=== PATIENT | male | born 1970 | race Caucasian/White ===

== ENCOUNTER 2024-01-21 10:27 | Inpatient (IN) | payer OTHER, SELFPAY ==
[2024-01-21] VITALS (19 sets, daily range): BP systolic 116–147; BP diastolic 72–107
--- NOTE | 2024-01-21 07:31 | ED.GENMED ---
History of Present Illness
<Henrry Dove PA-C - Last Filed: 01/21/24 12:27>
General
Chief Complaint: Breathing Problem
Source: patient
Time Seen by Provider: 01/21/24 07:11
Travel History
Have you had any contact with someone who has COVID-19?: No
Do you have any symptoms of coronavirus? Fever > 100 degrees, chills, cough, shortness of breath, sore throat, loss of taste or smell, muscle aches, or headache?: No
History of Present Illness
History of Present Illness:
53-year-old male with past medical history of hypertension and hypercholesterolemia presenting to the emergency department for evaluation of some mild shortness of breath that woke him up from sleep around 2 AM associated with some mild
lightheadedness with symptoms lasting for around an hour or so. Patient reports upon arrival to the emergency department he was asymptomatic but was concerned that he had to do work today and was concerned enough about the symptoms prompting him to
want to get checked out. Patient notes last week he was in a different emergency department in [place] where he lives partially and had an unremarkable workup. 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
apnea) next Thursday as a follow-up. Patient denies any associated chest pain, palpitations, diaphoresis, exertional dyspnea, orthopnea, lower extremity edema, cough, fevers or recent illnesses, prolonged travel. Family history was significant for
patient's twin brother having an AZ about 4 months ago. Social history was significant for occasional alcohol use.
Past History
<Henrry Dove PA-C - Last Filed: 01/21/24 12:27>
Past History
ED Past Medical History: HTN and Hypercholesterolemia
ED Past Surgical History: Appendectomy
Social History
Tobacco: Non-smoker
Alcohol: None
Drug: None
Personal:
Living: with family
Employment: Employed
Family History
Family History: Negative Early CAD or CAD
Review of Systems
<Henrry Dove PA-C - Last Filed: 01/21/24 12:27>
Review of Systems
All Other Systems: ROS reviewed and negative except as documented in HPI and ROS
Phy Exam
<Henrry Dove PA-C - Last Filed: 01/21/24 12:27>
Physical Exam
Physical Exam:
GENERAL: Alert , in no apparent distress
Head: Normocephalic/atraumatic
EYE: conjunctiva clear
NECK: Supple, no significant adenopathy.
ENT: o/p clr, mmm.
CARDIAC: Regular rate and rhythm, no murmur
LUNGS: Clear breath sounds bilaterally, no acute respiratory distress, no wheezes/rales/rhonchi
NEUROLOGICAL: Alert and oriented
SKIN: Warm and dry, skin intact.
MUSCULOSKELETAL: well perfused. No edema
PSYCH: Normal and appropriate interaction.
Scores
<Henrry Dove PA-C - Last Filed: 01/21/24 12:27>
Heart Failure Risk
Heart Failure Risk Score: Not Applicable
Heart Score for Chest Pain Patients
STEMI patient?: No
History: Slightly or Non-Suspicious
ECG: Nonspecific Repolarization
Age: >45 - <65 years
Risk Factors: 1 or 2 Risk Factors
Troponin: </= Normal Limit
Heart Score for Chest Pain Patients: 3
Heart Score Risk: 2.5% MACE over next 6 weeks
Withdrawal Assessment of Alcohol
Withdrawal Assessment Completed?: Not applicable
<Lara Kaplan MD - Last Filed: 01/21/24 08:53>
Heart Score for Chest Pain Patients
Heart Score for Chest Pain Patients: 3
Heart Score Risk: 2.5% MACE over next 6 weeks
Course
<Henrry Dove PA-C - Last Filed: 01/21/24 12:27>
Orders/Labs/Results
Orders:
Orders
01/21/24 06:13
EKG [Electrocardiogram (*1)] Urgent
Reason for Study: Shortness of Breath
01/21/24 06:14
EKG- Treatment ONCE
01/21/24 07:31
Cardiac Monitoring- Treatment ONCE
CR Chest - 2 Views Urgent
Comment:
Reason For Exam: SOB
01/21/24 07:42
Complete Blood Count/With Diff Urgent
Comprehensive Metabolic Panel Urgent
Troponin I Urgent
01/21/24 08:00
D-Dimer Urgent
PTT Urgent
Comment: Obtain baseline before beginning heparin infusion if not already collected
Prothrombin Time Urgent
01/21/24 08:33
Electrocardiogram (*1) Urgent
Reason for Study: Chest Pain
EKG- Treatment ONCE
Aspirin Chewable [Low Strength Aspirin] 324 mg PO NOW STA
01/21/24 08:34
Heparin 4,000 units IV NOW STA
Nursing to Place Non Medication Order As Directed
Physician Order: PTT 6 hours after initial start of Heparin infusion
Above order entered?: Yes
01/21/24 08:43
Heparin [id number] Units/250 ml 25,000 units in 250 ml .ROUTE .STK-MED
01/21/24 08:45
Heparin [id number] Units/250 ml 25,000 units in 250 ml IV PER PROTOCOL
Weight to be used for heparin protocol in kilograms (kg):: 111
Protocol:: Cardiac Tx/Acute Coronary
PTT Goal Range to be used:: PTT 73 to 111 seconds
Order type:: Initial
INITIAL Infusion Dose (UNITS/KG/hr) & then follow protocol:: 15 units/kg/hr
Infusion Dose in UNITS/hr & then follow protocol (UNITS/hr):: 1,500
INFUSION RATE in mL/hr & then follow protocol (mL/hr):: 15
PTT less than or equal to 64 seconds:: Increase rate by 200 units/hr (+ 2 mL/hr)
PTT 64.1 to 72.9 seconds:: Increase rate by 100 units/hr (+ 1 mL/hr)
PTT 73 to 111 seconds:: Target Range. No change in rate.
PTT 111.1 to 130.9 seconds:: Decrease rate by 100 units/hr (- 1 mL/hr)
PTT 131 to 199.9 seconds:: HOLD for 1 hr. Then decrease rate by 200 units/hr (- 2 mL/hr)
PTT greater than or equal to 200 seconds:: HOLD for 2 hrs & Notify Provider. Then decrease by 200 units/hr (-
2 mL/hr)
Lab follow-up:: Each change, PTT q6h until 2 consecutive are therapeutic. Then PTT
daily.
01/21/24 09:00
Flush (0.9% Sodium Chloride) [Flush (Nss)] See Dose Instructions IV PER PROTOCOL
01/21/24 09:05
Echo 2D MMode Color/Doppler Urgent
Reason for Study: chest pain, SOB
Cardiology Consult: Rosalind Santana
01/21/24 Lunch
Cholesterol Lowering
At Your Request: Full Participation
Cholesterol Lowering: Sodium, 2 Gram
01/21/24 10:12
Admit/Transfer Patient As Directed
Co-Sign Provider:
Level of Care: Inpatient admission
Assign to:: IVU
Physician / Group: Elvis Coombs
Diagnosis: Chest pain
Reason for Hospitalization: Chest pain, troponin elevation
Expected length of stay greater than two midnights?: Yes
ELOS- Estimated Length of Stay in days: 2
I certify the patient meets the requirements for IP care: Yes
01/21/24 10:14
Code Status As Directed
Resuscitation Status: Full Code
01/21/24 10:22
EKG- Treatment ONCE
01/21/24 10:30
Electrocardiogram (*1) Urgent
Reason for Study: Chest Pain
Other Reason for Exam: repeat test for repeat troponin
01/21/24 10:53
Troponin I Urgent
01/21/24 14:45
PTT Urgent
01/23/24 11:00
DC Protocol for Telemetry ONCE
Abnormal Lab Results
01/21/24 01/21/24
07:42 08:00
Monocytes % 10.9 H %
(1.7-9.3)
APTT 35.2 H Sec
(23.4-35.0)
BUN 22 H mg/dl
(9-20)
Glucose 119 H mg/dl
(70-99)
Troponin I 0.035 H* ng/ml
01/21/24 07:42
01/21/24 07:42
Vital Signs
Initial and Last Documented VS:
Initial Vital Signs
Temp Pulse Resp BP Pulse Ox
98.2 F 61 18 138/92 95
01/21/24 06:20 01/21/24 06:20 01/21/24 06:20 01/21/24 06:20 01/21/24 06:20
Last Documented Vital Signs
Temp Pulse Resp BP Pulse Ox
98.2 F 59 19 128/88 94
01/21/24 06:20 01/21/24 12:15 01/21/24 12:15 01/21/24 12:00 01/21/24 07:45
<Lara Kaplan MD - Last Filed: 01/21/24 08:53>
Orders/Labs/Results
Orders:
Orders
01/21/24 06:13
EKG [Electrocardiogram (*1)] Urgent
Reason for Study: Shortness of Breath
01/21/24 06:14
EKG- Treatment ONCE
01/21/24 07:31
Cardiac Monitoring- Treatment ONCE
CR Chest - 2 Views Urgent
Comment:
Reason For Exam: SOB
01/21/24 07:42
Complete Blood Count/With Diff Urgent
Comprehensive Metabolic Panel Urgent
Troponin I Urgent
01/21/24 08:00
D-Dimer Urgent
PTT Urgent
Comment: Obtain baseline before beginning heparin infusion if not already collected
Prothrombin Time Urgent
01/21/24 08:33
Electrocardiogram (*1) Urgent
Reason for Study: Chest Pain
EKG- Treatment ONCE
Aspirin Chewable [Low Strength Aspirin] 324 mg PO NOW STA
01/21/24 08:34
Heparin 4,000 units IV NOW STA
Nursing to Place Non Medication Order As Directed
Physician Order: PTT 6 hours after initial start of Heparin infusion
Above order entered?: Yes
01/21/24 08:43
Heparin [id number] Units/250 ml 25,000 units in 250 ml .ROUTE .STK-MED
01/21/24 08:45
Heparin [id number] Units/250 ml 25,000 units in 250 ml IV PER PROTOCOL
Weight to be used for heparin protocol in kilograms (kg):: 111
Protocol:: Cardiac Tx/Acute Coronary
PTT Goal Range to be used:: PTT 73 to 111 seconds
Order type:: Initial
INITIAL Infusion Dose (UNITS/KG/hr) & then follow protocol:: 15 units/kg/hr
Infusion Dose in UNITS/hr & then follow protocol (UNITS/hr):: 1,500
INFUSION RATE in mL/hr & then follow protocol (mL/hr):: 15
PTT less than or equal to 64 seconds:: Increase rate by 200 units/hr (+ 2 mL/hr)
PTT 64.1 to 72.9 seconds:: Increase rate by 100 units/hr (+ 1 mL/hr)
PTT 73 to 111 seconds:: Target Range. No change in rate.
PTT 111.1 to 130.9 seconds:: Decrease rate by 100 units/hr (- 1 mL/hr)
PTT 131 to 199.9 seconds:: HOLD for 1 hr. Then decrease rate by 200 units/hr (- 2 mL/hr)
PTT greater than or equal to 200 seconds:: HOLD for 2 hrs & Notify Provider. Then decrease by 200 units/hr (-
2 mL/hr)
Lab follow-up:: Each change, PTT q6h until 2 consecutive are therapeutic. Then PTT
daily.
01/21/24 09:00
Flush (0.9% Sodium Chloride) [Flush (Nss)] See Dose Instructions IV PER PROTOCOL
01/21/24 09:05
Echo 2D MMode Color/Doppler Urgent
Reason for Study: chest pain, SOB
Cardiology Consult: Rosalind Santana
01/21/24 Lunch
Cholesterol Lowering
At Your Request: Full Participation
Cholesterol Lowering: Sodium, 2 Gram
01/21/24 10:12
Admit/Transfer Patient As Directed
Co-Sign Provider:
Level of Care: Inpatient admission
Assign to:: IVU
Physician / Group: Elvis Coombs
Diagnosis: Chest pain
Reason for Hospitalization: Chest pain, troponin elevation
Expected length of stay greater than two midnights?: Yes
ELOS- Estimated Length of Stay in days: 2
I certify the patient meets the requirements for IP care: Yes
01/21/24 10:14
Code Status As Directed
Resuscitation Status: Full Code
01/21/24 10:22
EKG- Treatment ONCE
01/21/24 10:30
Electrocardiogram (*1) Urgent
Reason for Study: Chest Pain
Other Reason for Exam: repeat test for repeat troponin
01/21/24 10:53
Troponin I Urgent
01/21/24 14:45
PTT Urgent
01/23/24 11:00
DC Protocol for Telemetry ONCE
Abnormal Lab Results
01/21/24 01/21/24
07:42 08:00
Monocytes % 10.9 H %
(1.7-9.3)
APTT 35.2 H Sec
(23.4-35.0)
BUN 22 H mg/dl
(9-20)
Glucose 119 H mg/dl
(70-99)
Troponin I 0.035 H* ng/ml
01/21/24 07:42
01/21/24 07:42
Vital Signs
Initial and Last Documented VS:
Initial Vital Signs
Temp Pulse Resp BP Pulse Ox
98.2 F 61 18 138/92 95
01/21/24 06:20 01/21/24 06:20 01/21/24 06:20 01/21/24 06:20 01/21/24 06:20
Last Documented Vital Signs
Temp Pulse Resp BP Pulse Ox
98.2 F 59 19 128/88 94
01/21/24 06:20 01/21/24 12:15 01/21/24 12:15 01/21/24 12:00 01/21/24 07:45
<Henrry Dove PA-C - Last Filed: 01/21/24 12:27>
MDM/Problems Addressed
Differential Diagnosis Includes:
Atypical ACS presentation, sleep apnea, I do not have concern for pulmonary embolism, no concern for infectious etiology such as pneumonia
MDM/Problems Addressed:
53-year-old male presenting emergency department for evaluation after being woken around 2 AM sensation of shortness of breath and as if he could not take a deep breath in to get enough oxygen patient reports his symptoms are fully resolved at this
time. He did not have any chest pain with this episode however notes that he was in a different emergency department in March last week for chest pain. Patient reports his symptoms this morning were different than the symptoms that brought him
to the ER last week. Patient does have risk factors including hypertension and high cholesterol as well as a twin brother having an AZ 4 months ago. Will check labs, EKG and chest x-ray. Will repeat a troponin. Will help with expedited
outpatient follow-up as long as remaining workup is unremarkable.
<Henrry Dove PA-C - Last Filed: 01/21/24 12:27>
*Pulse Oximetry
Patient hypoxic: no
*EKG
Interpreted by ED Provider?: Yes
Comparison EKG: changes noted
Heart Rate: 65
Rate: normal
Rhythm: sinus
Ischemia: T-wave inversion (V through through V5)
*Critical Care Note
Total Time (30-74mins, 75-104mins- exclusive of procedures): 30
comment:
Critical care statement: A total of 30 minutes of critical care time was provided for this patient. This includes management of unstable vital signs, evaluation of the patient at bedside, reviewing the patient's pertinent medical records, discussion
with consultants, review of old EKGs and review of pertinent medical records. This time with separate from time utilized to perform the aforementioned documented procedures
<Henrry Dove PA-C - Last Filed: 01/21/24 12:27>
Patient Management
Discussion with other providers: Food Services Coordinator
Escalation/DeEscalation of care consider admission/obs:
8:35 AM: Patient's first troponin came back mildly elevated at 0.035. Given his T wave inversions on EKG, risk factors including family history, hypertension, hyperlipidemia and presenting symptoms today concern for a possible NSTEMI versus non-AZ
elevated troponin. I contacted cardiology to help with disposition planning as well as further treatment. They are requesting that we repeat an EKG now. Patient took to 81 mg aspirin at home earlier today so an additional 281 mg aspirin given
here. Heparin ordered at cardiology's for and we added a D-dimer on as well.
ED Attending Note
<Henrry Dove PA-C - Last Filed: 01/21/24 12:27>
-
Portions of this chart may have been created with voice recognition software.� Occasional wrong word or��sound alike� substitutions may have occurred due to the inherent limitations of voice recognition software.
<Lara Kaplan MD - Last Filed: 01/21/24 08:53>
ED Attending Note
Patient seen and examined by attending physician: Yes
I performed the substantive portion of visit, reviewed & personally made and approve the management plan that is documented in note by myself or NORBERTO.: Yes
ED Attending Note:
Patient appears well and comfortable. Denies active chest pain at this time. Patient breathing comfortably. Nonfocal neurological exam
Discharge Plan
Departure
Patient Disposition: Admit
Date of Disposition: 01/21/24
Time of Disposition: 08:58
Presentation/result/management discussed w/ accepting MD/DO: Hospitalist
Discharge Problem:
Chest pain
Interventions
Interventions:
*Risk Screen - Suicide Last Done: 01/21/24 07:30
*General Assessment Last Done: 01/21/24 07:30
*Neglect/Abuse Screening Last Done: 01/21/24 07:30
ED- Fall Risk Assessment Last Done: 01/21/24 07:54
*ED COVID-19 Vaccine History Last Done: 01/21/24 07:30
ED- Cardiac Assessment Last Done: 01/21/24 07:30
ED- Pulmonary Assessment Last Done: 01/21/24 07:32
[2024-01-21 07:56] LABS: % Basophils 0.7 % (0-2); % Eosinophils 4.4 % (0-6); % Immature Granulocytes 0.2 % (0-0.5); % Monocytes 10.9 % (1.7-9.3); % Neutrophils 46.8 % (42.2-75.2); Absolute Eosinophils 0.2 10^3/uL (0-0.7); Absolute Monocytes 0.6 10^3/uL (0.1-0.6); Absolute Neutrophils 2.6 10^3/uL (1.4-6.5); Hematocrit 40.3 % (39.0-52.0); Hemoglobin 14.4 g/dL (13.0-18.0); Mean Corp Hgb Conc. 35.7 g/dL (33.0-37.0); Mean Corpuscular Hgb 29.3 pg (27.0-31.0); Mean Corpuscular Volume 81.9 fL (80.0-94.0); Mean Platelet Volume 9.6 fL (7.4-10.4); Nucleated Red Blood Cells % 0 % (-); Platelet Count 234 10^3/uL (130-400); Red Blood Cell Count 4.92 10^6/uL (4.70-6.10); Red Cell Dist. Width 12.5 % (11.5-14.5); White Blood Cell Count 5.5 10^3/uL (4.8-10.8)
[2024-01-21 08:09] LABS: ALT (SGPT) 47 U/L (0-50); AST (SGOT) 37 U/L (17-59); Alkaline Phosphatase 86 U/L (38-126); Blood Urea Nitrogen 22 mg/dl (9-20); Calcium 10.1 mg/dl (8.4-10.2); Carbon Dioxide 28 mmol/L (22-30); Chloride 103 mmol/L (98-107); Glucose 119 mg/dl (70-99); Potassium 3.5 mmol/L (3.5-5.1); Sodium 139 mmol/L (135-145); Total Bilirubin 0.6 mg/dl (0.2-1.3); Total Protein 6.7 g/dl (6.3-8.2); eGFR > 60.00
[2024-01-21 08:23] LABS: Troponin I 0.035 ng/ml
[2024-01-21] MEDS: LOW STRENGTH ASPIRIN 162 MG PO (08:40)
[2024-01-21] MEDS: HEPARIN 4000 UNITS IV (08:44)
[2024-01-21] MEDS: HEPARIN 25000 UNITS/250 ML IV (08:52)
[2024-01-21 09:05] LABS: INR 1.04; PT 13.6 Sec (11.4-14.6)
[2024-01-21 09:06] LABS: APTT 35.2 Sec (23.4-35.0)
[2024-01-21 09:13] LABS: D-Dimer < 0.27 ug/mlFEU (0.00-0.50)
--- NOTE | 2024-01-21 09:52 | CON.CAR ---
Addendum entered and electronically signed by Rosalind Santana DO 01/21/24 17:45:
I saw and examined the patient.
The Senior Industrial Engineer's note was reviewed and I agree with the note.
Comment: Patient seen and examined in ED 29 along with cardiac nurse practitioner. Patient came to [facility] today with chest pain and SOB. Patient was seen in [facility] last Thursday for an episode of chest pain. Patient says that at
that time he was driving from his home locally down to visit his family in [place] when he had 4 episodes of sharp chest pain that would come and go. Pain was more to the left and no radiation or SOB. He was told that he had unremarkable Troponin
levels and he was discharged form the ER. He was overall stable until he awoke at 0200 this morning gasping for breath and had more chest pain. He tried to catch his breath, but could never fall back to sleep so he finally came to [facility]. Patient had
chest pain back in 2015 and he completed stress echo at that time that showed normal EF at 7 min of Kemar protocol and the focus of treatment then was HTN management. Patient takes amlodipine 5 mg BID, losartan 100 mg daily and Lopressor 25 mg BID
for BP control. Patient is also concerned because his fraternal twin brother just had TX and PCI 4 months ago. He is currently chest pain-free
General: No acute distress, AAOX3
Neck: Negative JVD
Heart: Regular, Negative S3 positive S1/S2, Negative S4, No murmur
Lungs: CTA b/l, negative wheezes/rales/rhonchi
Abd: Positive BS, NT/ND, neg rebound/rigidity/guarding
Ext: Negative cyanosis/clubbing/edema
Neuro: nonfocal
Plan:
-Recurrent chest pain with initial Troponin 0.035 with cardiac risk factors and abnormal EKG with anterolateral T wave changes.
-He is pain free currently on a heparin drip
-Trend cardiac troponin and recheck EKG
-Check lipid profile
-Bedside echocardiogram with normal biventricular size and systolic function with mild LVH. No significant valve pathology. No pericardial effusion.
-Discussed further ischemic evaluation and he is agreeable to left heart catheterization
-Hypertension
-Goal normotension
Obstructive sleep apnea on CPAP
-He is scheduled to see Dr. Navarro for ongoign CPAP management of his FREDY. He reports resting the mask on his face and does not strap the mask when wearing it.
Original Note:
Consultation
Consultation Request
Date/Time Consultation Requested: 01/21/24
Date/Time Consultation Performed: 01/21/24
Requesting Provider: Petty MAURICE in ER
Performing Provider: Dr. Rosalind Santana
Reason for Consultation: Chest pain, SOB
Medical History
-
History of Present Illness:
Patient came to [facility] today with chest pain and SOB. Patient was seen in [facility] last Thursday for an episode of chest pain. Patient says that at that time he was driving from his home locally down to visit his family in [place]
when he had 4 episodes of sharp chest pain that would come and go. Pain was more to the left and no radiation or SOB. He was told that he had unremarkable Troponin levels and he was discharged form the ER. He was overall stable until he awoke at
0200 this morning gasping for breath and had more chest pain. He tried to catch his breath, but could never fall back to sleep so he finally came to [facility]. Patient had chest pain back in 2015 and he completed stress echo at that time that showed
normal EF at 7 min of Kemar protocol and the focus of treatment then was HTN management. Patient takes amlodipine 5 mg BID, losartan 100 mg daily and Lopressor 25 mg BID for BP control. Patient is also concerned because his fraternal twin brother
just had TX and PCI 4 months ago.
PMH:
HTN
Hyperlipidemia
FREDY on CPAP
Past Medical History
Past Medical History: Other (in HPI)
Past Surgical History: Appendectomy
Social History
Tobacco: Non-Smoker
Alcohol: Occasional
Drug: None
Personal: (in process of divorce)
Family History
Family History: CAD (fraternal twin brother had an TX and PCI 4 months ago)
Allergies / Home Medications
Allergy/AdvReac Type Severity Reaction Status Date / Time
hydrocodone bitartrate Allergy HEADACHE Verified 01/21/24 06:20
[From Vicodin]
Medication Instructions Recorded Confirmed Type
acetaminophen 325 mg tablet 650 mg PO DAILYPRN PRN mild pain 01/21/24 01/21/24 History
(Tylenol)
amlodipine 5 mg tablet 5 mg PO BID Blood Pressure 01/21/24 01/21/24 History
ascorbic acid (vitamin C) 500 mg 500 mg PO DAILY Supplement 01/21/24 01/21/24 History
tablet (Vitamin C)
aspirin 81 mg tablet,delayed 81 mg PO ONCE PRN freaking out 01/21/24 01/21/24 History
release
coenzyme Q10 100 mg capsule 100 mg PO DAILY PRN supplement 01/21/24 01/21/24 History
(CoQ-10)
losartan 100 mg tablet 100 mg PO DAILY Blood Pressure 01/21/24 01/21/24 History
metoprolol tartrate 25 mg tablet 25 mg PO BID Blood Pressure 01/21/24 01/21/24 History
rosuvastatin 5 mg tablet 5 mg PO DAILY High Cholesterol 01/21/24 01/21/24 History
Review of Systems
-
History Source: Patient
All other systems: Negative unless noted
Physical Exam
Vital Signs
Temp Pulse Resp BP Pulse Ox
98.2 F 62 20 135/94 94
01/21/24 06:20 01/21/24 09:30 01/21/24 09:30 01/21/24 09:00 01/21/24 07:45
GEN: NAD. AAOx3
HEENT: EOMI, MMM
LUNGS: CTA B/L, no wheezes or rales
CV: Reg, S1/S2, no murmur
ABD: soft, BS+, NT, ND
EXT: No clubbing, cyanosis, lesions or edema B/L
NEURO: Gross non-focal
SKIN: Warm, dry and pink. No rash
Lab Results
01/21/24 07:42
01/21/24 07:42
Troponin I 0.035 ng/ml H* 01/21/24 07:42
Impression / Plan
-
PCP: Dr. Rubia Jessica
Cardiology: Dr. ROSLYN Guzman, last seen in 2015
Pulm: Dr. Navarro
Impression:
Chest pain
SOB
HTN
Hyperlipidemia
FREDY on CPAP
Echo 01/21/24: preliminary report, preserved EF, no WMA, LV wall thickness 1.2, no MAIKEL
Plan:
-Patient came to [facility] today with chest pain and SOB. Patient was seen in [facility] last Thursday for an episode of chest pain. Patient says that at that time he was driving from his home locally down to visit his family in [place]
when he had 4 episodes of sharp chest pain that would come and go. Pain was more to the left and no radiation or SOB. He was told that he had unremarkable Troponin levels and he was discharged form the ER. He was overall stable until he awoke at
0200 this morning gasping for breath and had more chest pain. He tried to catch his breath, but could never fall back to sleep so he finally came to [facility]. Patient had chest pain back in 2015 and he completed stress echo at that time that showed
normal EF at 7 min of Kemar protocol and the focus of treatment then was HTN management. Patient takes amlodipine 5 mg BID, losartan 100 mg daily and Lopressor 25 mg BID for BP control. Patient is also concerned because his fraternal twin brother
just had TX and PCI 4 months ago.
-Recurrent chest pain with initial Troponin 0.035. His twin brother just had TX and PCI 4 months ago. ECG reviewed by me with abnormal with anterolateral T wave changes. He is pain free
-Start Heparin gtt
-He took 2 aspirin at home this morning and was given 2 more in the ER this morning
-Check CVE
-Awaiting 2nd Troponin
-Urgent bedside echo in ER preliminarily looks stable
-He is scheduled to see Dr. Navarro for ongoign CPAP management of his FREDY. He reports resting the mask on his face and does not strap the mask when wearing it.
--- NOTE | 2024-01-21 10:17 | HPS.HSE ---
Family Physician
-
Family Physician: Rubia Jessica MD
Chief Complaint
-
Chest pain/shortness of breath
History of Present Illness
Patient is a 53-year-old male with past medical history essential hypertension, hyperlipidemia, obesity came to ER with having new onset of chest discomfort with some shortness of breath. Initial symptom was few days back on Thursday night when he is
resolved by itself. 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 Patient denied having any associated diaphoresis nausea palpitation. No previous cardiac history. Denies any
abdominal or history.
Patient family member/twin brother has been diagnosed with coronary disease/ME just few months back and patient was concerned about cardiac health, came to ER for further evaluation.
Medical History
Past Medical History
Past Medical History: Reports Other
Additional Past Medical History:
Essential HTN, HLD, obesity
Past Surgical History: Reports None
Social History
Tobacco: Non-smoker
Alcohol: Occasional
Drug: None
Living: With Family
Family History
Family History: Not pertinent
Allergies / Home Medications
Allergies reflects when Allergies were last updated in [facility].
Home Medications with original date entered in [facility]
Allergy/Medication List:
Allergies
Allergy/AdvReac Type Severity Reaction Status Date / Time
hydrocodone bitartrate Allergy HEADACHE Verified 01/21/24 06:20
[From Vicodin]
Home Medications
acetaminophen 325 mg tablet (Tylenol) 650 mg PO DAILYPRN PRN mild pain 01/21/24
amlodipine 5 mg tablet 5 mg PO BID Blood Pressure 01/21/24
ascorbic acid (vitamin C) 500 mg tablet (Vitamin C) 500 mg PO DAILY Supplement 01/21/24
aspirin 81 mg tablet,delayed release 81 mg PO ONCE PRN freaking out 01/21/24
coenzyme Q10 100 mg capsule (CoQ-10) 100 mg PO DAILY PRN supplement 01/21/24
losartan 100 mg tablet 100 mg PO DAILY Blood Pressure 01/21/24
metoprolol tartrate 25 mg tablet 25 mg PO BID Blood Pressure 01/21/24
rosuvastatin 5 mg tablet 5 mg PO DAILY High Cholesterol 01/21/24
Review of Systems
-
A 12 point ROS was completed and negative except as noted: Yes
Physical Exam
Vital Signs
Vital Signs
Temp Pulse Resp BP Pulse Ox
98.2 F 63 13 132/94 94
01/21/24 06:20 01/21/24 10:00 01/21/24 10:00 01/21/24 10:00 01/21/24 07:45
Physical Exam
General: No Apparent Distress
HEENT: Atraumatic; No Oxygen
Respiratory: Clear
Cardiac: S1/S2 and Regular Rhythm; No Murmur or Rub
GI: Soft, Non Tender, Non Distended and Normal Bowel Sounds; No Organomegaly
Rectal: Deferred by Provider
Musculoskeletal: No Clubbing, No Cyanosis and No Edema
Skin: No Rash
Neuro: Nonfocal/grossly intact
Laboratory Results
-
01/21/24 07:42
01/21/24 07:42
Laboratory Results
PT 13.6 Sec (11.4-14.6) 01/21/24 08:00
INR 1.04 01/21/24 08:00
APTT 35.2 Sec (23.4-35.0) H 01/21/24 08:00
Total Bilirubin 0.6 mg/dl (0.2-1.3) 01/21/24 07:42
AST 37 U/L (17-59) 01/21/24 07:42
ALT 47 U/L (0-50) 01/21/24 07:42
Alkaline Phosphatase 86 U/L (38-126) 01/21/24 07:42
Troponin I 0.035 ng/ml H* 01/21/24 07:42
Data Reviewed
-
Lab Data: Labs Reviewed by me, Discussed with Patient and Discussed with Family
Impression/Plan
-
1. Chest pain
Presumed NSTEMI
-have chest pain/sob, no previous cardiac h/o
-EKG showing T wave depression/inversion in V4 V5 V6
-Troponin 0.035, repeat was 0.034
-Cardiology evaluated and patient started on heparin drip
-aspirin 325 mg and continue 81mg
-check a1c and lipid profile
-Admit to IVU
2. Essential HTN
-Maintain on Norvasc/metoprolol with holding parameter
-hold losartan for possible need of LHC/contrast exposure
3. HLD
-maintain on crestor
DVT PPX - heparin
full code
Total time spent : 78 mins
I personally saw and examined the patient.
I have reviewed all diagnostic interpretations and treatment plans as written.
Time includes patient management by me, time spent at the patients bedside, time to review lab and imaging results, discussing patient care, documentation in the medical record, and time spent with the family or caregiver and discussing care plan
with RN/Consultants.
[2024-01-21 11:25] LABS: Troponin I 0.034 ng/ml
--- NOTE | 2024-01-21 13:12 | W.PN.UPDATE ---
Update Note
Progress Note Update
Updated Troponin and ECG reviewed. Troponin trending down. ECG stable. Called and talked with patient. He is pain free.f Cont Heparin gtt. Explained to patient that IAT and STEMI are in lab now and that once lab is free he will go.
[2024-01-21 15:32] LABS: ACT-LR - POC 289 Seconds (116-155)
[2024-01-21 16:05] LABS: ACT-LR - POC 294 Seconds (116-155)
[2024-01-21 16:52] LABS: ACT-LR - POC 343 Seconds (116-155)
[2024-01-21 18:01] LABS: Troponin I 0.037 ng/ml
[2024-01-21] MEDS: CRESTOR 20 MG PO (18:08)
--- NOTE | 2024-01-21 18:29 | PTCARENOTE ---
Received pt s/p LHC. R TR band in place, no bleeding noted, see post cath documentation. Pt AOx3, denies pain, NSR w/ 1degree AVB and PACs on monitor HR 70. 98% on RA. Full assessment as documented.
[2024-01-21] MEDS: NORVASC 5 MG PO (20:02)
[2024-01-21] MEDS: BRILINTA 90 MG PO (20:02)
[2024-01-21] MEDS: LOPRESSOR 25 MG PO (20:03)
--- NOTE | 2024-01-21 22:00 | PTCARENOTE ---
Pt asked for O2 to sleep. States he has sleep apnea but doesn't use his cpap. States he was feeling a little short of breath. Placed on O2 2l nC.
--- NOTE | 2024-01-21 22:17 | ITS.CL.CATH ---
Machined Parts Quality Inspector - Catheterization
Cardiac Catheterization
Procedure Report:
LEFT HEART CATH AND CORONARY INTERVENTION
Date of Procedure: January 21, 2024
Referring: Dr. Rosalind Santana
PROCEDURES:
1. Left heart catheterization with coronary and single-plane left ventriculography
2. 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 The mid circumflex was stented with a 4.5 x 12 mm [place] stent that was postdilated with a 4.5 mm noncompliant balloon
3. Stenting of anomalous circumflex/OM branch with a 2.25 x 22 mm Víctor stent that was implanted at nominal pressures and postdilated with a 2.25 mm noncompliant balloon
INDICATION: This is a 53-year-old gentleman with a past medical history notable for hypertension and hyperlipidemia who presented to [facility] with atypical but worsening chest discomfort and troponin measuring at the upper limits of
normal. His symptoms have been worsening and he is now referred for coronary angiography.
ACCESS: Right radial artery, 6 Afghan sheath
HEMODYNAMICS (mmHg):
AO (s/d, m) : 125/79
LV (s/d) : 125/14
LVEDP : 29
CORONARY FINDINGS
Dominance: Right
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 The left main only supplies the LAD
LEFT ANTERIOR DESCENDING: The LAD arises normally from the left main and has a 30% proximal stenosis and diffuse nonobstructive luminal irregularities throughout the mid LAD. The apical LAD has a focal 80% stenosis as the artery is wrapping around
the apex.
CIRCUMFLEX: The circumflex has an anomalous origin from the right coronary cusp best cannulated using a multipurpose (MP 1) catheter. The circumflex is a large-caliber vessel nondominant vessel with an 85% stenosis in its midportion. The
circumflex bifurcates to to moderate caliber daughter branches. The more proximal daughter branch has a 50% stenosis at its origin and long 60% mid stenosis. The second daughter branch has tandem proximal 60% stenoses and long 90% stenosis in its
midportion after which the vessel bifurcates into 2 smaller daughter branches
RIGHT CORONARY: The right coronary artery is a dominant vessel with tandem proximal 50% stenosis and 60% stenosis in its midportion. The PDA has a 70% proximal stenosis and is a medium to large caliber vessel
VENTRICULOGRAPHY: Left ventriculography was performed in an [place] projection. The digital single-plane left ventricular ejection fraction is visually estimated at 50% with anterolateral and diaphragmatic inferior hypokinesis noted. The anomalous
circumflex was noted to fill from the right coronary cusp
ANGIOPLASTY PROCEDURE DETAIL: Upon review of the diagnostic catheterization films the decision was made to proceed with percutaneous intervention of the circumflex and obtuse marginal branch with a high-grade mid stenosis. It was felt that this
vascular distribution fit best with the anterolateral wall motion abnormality noted on ventriculography. Intravenous heparin was administered and the ACT was monitored during the procedure. The patient received aspirin and a 180 mg loading dose of
ticagrelor. The origin of the anomalous circumflex was cannulated with a 6 Afghan MP 1 catheter and a BMW guidewire across the high-grade mid circumflex stenosis but could not be advanced to the OM 2 secondary to wire bypass from the mid circumflex
stenosis. The decision was made to stent the mid circumflex with a 4.5 x 12 mm [place] stent that was implanted at nominal pressures then postdilated with a 4.5 mm noncompliant balloon. The BMW guidewire was then easily directed into the second
obtuse marginal branch and across the high-grade stenosis in the midportion of the vessel. Predilation was performed using a 2 mm Emerge balloon and required high pressures to achieve balloon expansion. Attempts to cross the lesion with a 2.25 x
22 mm Víctor stent were unsuccessful due to residual stenosis and OM 2. A GuideLiner was then advanced to the mid circumflex and the [place] stent was easily delivered to the midportion of OM 2 where it was implanted at nominal pressures and postdilated
with a 2.25 mm noncompliant balloon with a nice angiographic result
RADIATION SUMMARY: Fluoro Time (min): 21.5, Dose (mGy): 1561, DAP (Gy.cm2) : 113
CONCLUSIONS
1. 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
2. Residual coronary disease in the proximal to mid RCA and proximal PDA as well as OM1.
3. Low normal LVEF with regional anterolateral wall motion abnormality and focal diaphragmatic inferior hypokinesis
RECOMMENDATIONS
1. May consider staged assessment of the RCA and/or OM1 for hemodynamic significance and possible PCI. Apical LAD stenosis should be managed medically.
2. High intensity statin therapy
3. Uninterrupted dual antiplatelet therapy for 12 months
Copy to: Dr. Rosalind Santana
[2024-01-22] VITALS: BP 103/63
[2024-01-22 02:00] VITALS: BP 106/67
[2024-01-22 04:45] VITALS: BP 123/88
[2024-01-22 05:11] LABS: Hematocrit 42.6 % (39.0-52.0); Hemoglobin 15.3 g/dL (13.0-18.0); Mean Corp Hgb Conc. 35.9 g/dL (33.0-37.0); Mean Corpuscular Hgb 30.1 pg (27.0-31.0); Mean Corpuscular Volume 83.7 fL (80.0-94.0); Mean Platelet Volume 9.9 fL (7.4-10.4); Platelet Count 229 10^3/uL (130-400); Red Blood Cell Count 5.09 10^6/uL (4.70-6.10); Red Cell Dist. Width 12.5 % (11.5-14.5); White Blood Cell Count 6.6 10^3/uL (4.8-10.8)
[2024-01-22 05:36] LABS: Blood Urea Nitrogen 19 mg/dl (9-20); Calcium 9.7 mg/dl (8.4-10.2); Carbon Dioxide 28 mmol/L (22-30); Chloride 106 mmol/L (98-107); Estimated Creatinine Clearance 116 ml/min; Glucose 98 mg/dl (70-99); HDL Cholesterol 35 mg/dl; LDL Cholesterol, Calculated 101 mg/dl; Potassium 3.6 mmol/L (3.5-5.1); Sodium 140 mmol/L (135-145); Total Cholesterol 180 mg/dl (50-199); Triglyceride 221 mg/dl (10-149); Very Low Density Lipoprotein 44 mg/dl (0-30); eGFR > 60.00
[2024-01-22 05:39] LABS: Troponin I 0.407 ng/ml
[2024-01-22 07:46] VITALS: BP 127/91
[2024-01-22 08:45] LABS: Glycohemoglobin (HgbA1c) 5.5 % (4.0-5.6)
[2024-01-22] MEDS: COZAAR 100 MG PO (08:56)
[2024-01-22] MEDS: BRILINTA 90 MG PO (08:56)
[2024-01-22] MEDS: ASPIR LOW (ENTERIC COATED) 81 MG PO (08:56)
[2024-01-22] MEDS: NORVASC 5 MG PO (08:57)
[2024-01-22] MEDS: LOPRESSOR 25 MG PO (08:57)
--- NOTE | 2024-01-22 09:25 | CM ---
Addendum entered by Jenn Thomas 01/22/24 11:54:
Telephone call to [facility] to check if Brilinta 90 mg po bid is in stock. [facility] states they have it in stock.
Original Note:
Reviewed chart. Met with Mr. Conteh to review discharge plans. He states prior to admission he resides alone in an apartment. He states he has eighteen steps to get to the apartment. He states prior to admission he was independent with ambulation
and adls. He states he has a CPAP Machine at home and no other DME. He states he has a prescription plan and uses [facility]. Telephone call to [facility] benefit,([phone]) to check on coverage for Brilinta 90 mg po bid. His
first co-pay would be $293.48. He has a $500.00 a month deductible. after he mets his deductible his co-pay would be $145.08. He can use the $5.00 coupon so he first script would be $93.08 and then it would be $5.00 a month. Placed the $5.00 coupon
in his red discharge folder. Reviewed co-pays with him. He was agreeable. Medical work-up in progress. The discharge plan is to return miguel when medically stable.
--- NOTE | 2024-01-22 10:56 | W.PN.HOSP.TC ---
Today's Communication/Plan
-
d/c planning post cardio eval
Assessment / Plan
Assessment / Plan
[facility]
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
2.� Residual coronary disease in the proximal to mid RCA and proximal PDA as well as OM1.
3.� Low normal LVEF with regional anterolateral wall motion abnormality and focal diaphragmatic inferior hypokinesis

1. Chest pain
� � Presumed NSTEMI
-have chest pain/sob, no previous cardiac h/o
-EKG showing T wave depression/inversion in V4 V5 V6
-Borderline trop elevation.
-aspirin 325 mg and continue 81mg
-A1c 5.5 TC 180 LDL 101 HDL 35
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
-Cardio recommended dual anti plt and donell intensity statin therapy moving forward
2. Essential HTN
-Maintain on Norvasc/metoprolol with holding parameter
-hold losartan for possible need of LHC/contrast exposure
3. HLD
-maintain on crestor
4. Dyspnea
-CAD stented as on [facility] report above
-D-dimer neg. cxr clean.
DVT PPX - heparin
full code
Anticipated Discharge: Today
Subjective/Interval History
-
Date of Service: January 22, 2024
resting comfortably in bed
some dyspnea, not hypoxic
no other reported problems
Objective Data
-
Labs:
Laboratory Results
01/22/24
05:01
WBC 6.6
Hgb 15.3
Hct 42.6
Plt Count 229
Sodium 140
Potassium 3.6
Chloride 106
Carbon Dioxide 28
BUN 19
Creatinine 0.9
Glucose 98
Calcium 9.7
Vital Signs:
Vital Signs
Temp Pulse Resp BP Pulse Ox
97.2 F 65 18 127/91 99
01/22/24 07:45 01/22/24 08:56 01/22/24 07:45 01/22/24 08:56 01/22/24 10:12
I&O
01/21/24 01/22/24 01/23/24
06:59 06:59 06:59
Output Total 650 / 650 400 / 400
Balance -650 / -650 -400 / -400
Review of Systems
-
Respiratory: Reports Trouble Breathing
Cardiac: Reports No Symptoms
Abdomen/GI: Reports No Symptoms
Physical Exam
-
General: Comfortable
HEENT: Negative Oxygen
Respiratory: Clear to Auscultation
Cardiac: Regular Rhythm and S1/S2; Negative Murmur
Neuro: Awake, Alert and Oriented
Psych: Calm
[2024-01-22 11:54] VITALS: O2SAT 97; O2SAT 99
[2024-01-22 13:03] LABS: ACT-LR - POC > 397 Seconds (116-155)
--- NOTE | 2024-01-22 13:28 | W.PN.CARDCBS ---
Addendum entered and electronically signed by Junior Cox MD 01/22/24 15:29:
I saw and examined the patient.
The PILLOWCASE CLEANER or PA's note was reviewed and I agree with the note.
Comment: General: Well developed, well nourished in NAD.
Neck: Supple, no JVD, HJR, carotids +2 B/L, no bruits bilaterally.
Heart: Non displaced PMI, RRR, no murmurs, No S3, S4, no rubs.
Lungs: Clear to auscultation bilaterally, no wheeze, rhonchi, rubs bilaterally,
normal expiratory phase.
Extremities: No clubbing, cyanosis or edema bilaterally.
Neuro: Grossly nonfocal, awake, alert and oriented x3.
He put oxygen on but has not had any hypoxemia. He ambulated throughout the hallways without oxygen desaturation. No chest pain. Discharge to home. Consider stress testing versus staged intervention of residual disease
Original Note:
Today's Communication / Plan
-
s/p PCI of circumflex and OM2.
Continue DAPT
Continue Lopressor, amlodipine, and losartan
Follow up arranged
OK for discharge
Impression / Plan
-
PCP: Dr. Rubia Jessica
Cardiology: Dr. ROSLYN Guzman, last seen in 2015
Pulm: Dr. Navarro
Impression:
Chest pain
SOB
NSTEMI
CAD
s/p PCI of mid circumflex w/ 4.5 x 12 mm Víctor stent 01/21/2024
s/p PCI of OM 2 w/ 2.25 x 22 mm [place] stent 01/21/2024
residual disease of RCA, PDA, and OM1 as noted below
HTN
Hyperlipidemia
FREDY on CPAP
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 LAD: 30% proximal stenosis and diffuse luminal irregularities throughout the mid LAD. Apical LAD has a focal 80% stenosis as
the artery is wrapping around the apex. LCx: 85% stenosis in midportion bifurcates to moderate caliber daughter branches. The more proximal daughter branch has a 50% stenosis at its origin and a long 60% mid stenosis. Second-order branch has
tandem proximal 60% stenoses and a long 90% stenoses in its midportion after which the vessel bifurcates into 2 smaller daughter branches. RCA: Dominant vessel with tandem proximal 50% stenosis and 60% stenosis in its midportion. PDA has a 70%
proximal stenosis.
Echo 01/21/2024: EF 55 to 60%, no RWMA, mild TR, dilated aortic root with sinus of Valsalva measuring 4.0 cm, ascending aorta measures 3.7 cm
Plan:
-Presented with chest pain. initial troponin 0.035 and trended up to 0.407. Underwent LHC which revealed MV CAD as outlined above and patient had stenting of the mid circumflex and OM2.
-Continue DAPT with aspirin and Brilinta
-LDL 101 this AM. Continue Crestor 20mg daily.
-BP stable. Continue amlodipine, losartan, and Lopressor.
-Echo 01/20 with preserved EF as noted above.
-Some dyspnea reported this AM, however no desaturations were noted on ambulatory pulse ox.
-Stable for discharge to home.
-Cardiac rehab saw and arranged for 03/01/2024.
-Follow up arranged w/ cardiology.
HPI: Patient came to [facility] today with chest pain and SOB. Patient was seen in [facility] last Thursday for an episode of chest pain. Patient says that at that time he was driving from his home locally down to visit his family in [facility]
March when he had 4 episodes of sharp chest pain that would come and go. Pain was more to the left and no radiation or SOB. He was told that he had unremarkable Troponin levels and he was discharged form the ER. He was overall stable until he awoke at
0200 this morning gasping for breath and had more chest pain. He tried to catch his breath, but could never fall back to sleep so he finally came to [facility]. Patient had chest pain back in 2015 and he completed stress echo at that time that showed
normal EF at 7 min of Kemar protocol and the focus of treatment then was HTN management. Patient takes amlodipine 5 mg BID, losartan 100 mg daily and Lopressor 25 mg BID for BP control. Patient is also concerned because his fraternal twin brother
just had PR and PCI 4 months ago.
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
Subjective
Date of Service: January 22, 2024
Objective
Labs:
01/22/24 05:01
01/22/24 05:01
Labs
Hgb 15.3 g/dL (13.0-18.0) 01/22/24 05:01
Hct 42.6 % (39.0-52.0) 01/22/24 05:01
Plt Count 229 10^3/uL (130-400) 01/22/24 05:01
PT 13.6 Sec (11.4-14.6) 01/21/24 08:00
INR 1.04 01/21/24 08:00
APTT Cancelled 01/21/24 14:45
Sodium 140 mmol/L (135-145) 01/22/24 05:01
Potassium 3.6 mmol/L (3.5-5.1) 01/22/24 05:01
BUN 19 mg/dl (9-20) 01/22/24 05:01
Creatinine 0.9 mg/dL (0.7-1.3) 01/22/24 05:01
Glucose 98 mg/dl (70-99) 01/22/24 05:01
Troponins
01/21/24 01/21/24 01/21/24
07:42 10:53 15:00
Troponin I 0.035 H* 0.034 Cancelled
01/21/24 01/22/24
17:27 05:01
Troponin I 0.037 H* 0.407 H*
Vital Signs and I&O:
Vital Signs
Temp Pulse Resp BP Pulse Ox
98.2 F 64 16 127/91 98
01/22/24 11:46 01/22/24 11:46 01/22/24 11:46 01/22/24 08:56 01/22/24 11:46
Vital Signs
Temp Pulse Resp BP Pulse Ox
98.2 F 64 16 127/91 98
01/22/24 11:46 01/22/24 11:46 01/22/24 11:46 01/22/24 08:56 01/22/24 11:46
Intake & Output
01/20/24 01/21/24 01/22/24 01/23/24
06:59 06:59 06:59 06:59
Output Total 650 / 650 400 / 400
Balance -650 / -650 -400 / -400
--- NOTE | 2024-01-22 14:37 | PTCARENOTE ---
VSS. NSR on monitor. No complaints. Discharge instructions given.
--- NOTE | 2024-01-22 16:27 | W.DCSUMMARY ---
Discharge Summary
Discharge Data
Date of Admission: 01/21/24
Date of Discharge: 01/22/24
-
Pending Results: No
Hospital Course
Discharging Physician : Dr Elvis Coombs
Disposition : To home
Primary care physician :
Principal Discharge diagnosis :
Non-ST segment elevation myocardial infarction
Dilated aortic root
Chronic Discharge diagnosis :
Essential Hypertension
Hyperlipidemia
Hospital Course :
Patient is a 53-year-old male with no signal past medical history acceptable came with new onset of episodes of chest discomfort and shortness of breath. Patient denied of having any previous cardiac history although does have a brother with early
onset coronary disease. In ER evaluation showing patient having borderline troponin elevation and EKG showing T wave flattening and inversion in septal and lateral leads. Patient had an echocardiogram which showed preserved ejection fraction
without significant wall motion defect. Cardiology evaluated patient and after discussion was taken for elective left heart catheterization. 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
reji stent placed mid circumflex and obtuse marginal branch. Postprocedure patient had complained some dyspnea following day but no hypoxia. D-dimer was negative. Patient discharged home at this point with follow-up with cardiology.
Important imaging findings :
None
Procedure findings :
Left heart catheterization
1.� Anomalous circumflex with complex stenting of the mid circumflex with a 4.5 x 12 mm [place] stent and stenting of OM 2 with a 2.25 x 22 mm Reji stent which was postdilated with a 2.25 mm noncompliant balloon
2.� Residual coronary disease in the proximal to mid RCA and proximal PDA as well as OM1.
3.� Low normal LVEF with regional anterolateral wall motion abnormality and focal diaphragmatic inferior hypokinesis
Discharge Plan
-
Patient Disposition: Home (Routine Discharge)
Discharge Diagnosis/Procedures: Chest pain, Angioplasty with stent to left circumflex artery
Condition: Fair
Diet: Low Cholesterol
Activity: As tolerated
Driving Restrictions: No driving for 24 hours
Bathing Restrictions: OK to Shower
Other Services: Cardiac Rehab
Stand Alone Forms: DC Instructions- Cath/EP Lab
Referrals:
[facility] [Outside] - 03/01/24 1:00 pm
(Cardiac Rehab Orientation appointment is on 03/01/24 at 1:00 pm
The Cardiac Rehab gym is located on the first floor of the [facility].)
Odilia Harrell CRNP [Specified Professional Personl] - 02/11/24 3:40 pm
Rubia Jessica MD [Family Provider] - in one week
Additional Discharge Medication Instructions: Increase rosuvastatin to 20mg
Prescriptions:
New
rosuvastatin [Crestor] 20 mg tablet
20 mg PO DAILY Qty: 30 2RF
Brilinta 90 mg tablet
90 mg PO BID Qty: 60 2RF
aspirin 81 mg capsule
81 mg PO DAILY Qty: 30 0RF
Continued
acetaminophen [Tylenol] 325 mg Tablet
650 mg PO DAILYPRN PRN (Reason: mild pain)
amlodipine 5 mg Tablet
5 mg PO BID
ascorbic acid (vitamin C) [Vitamin C] 500 mg Tablet
500 mg PO DAILY
losartan 100 mg Tablet
100 mg PO DAILY
coenzyme Q10 [CoQ-10] 100 mg Capsule
100 mg PO DAILY PRN (Reason: supplement)
metoprolol tartrate 25 mg Tablet
25 mg PO BID
Patient Comments:
01/21/2024, per pharmacy, last filled on 10/13/2023 for a 30-day supply.
Discontinued
aspirin 81 mg Tablet,Delayed Release (Dr/Ec)
81 mg PO ONCE PRN (Reason: freaking out)
rosuvastatin 5 mg Tablet
5 mg PO DAILY
Discharge Orders:
Discharge Patient (As Directed); Ordered 01/22/24
Ordered By: Elvis Coombs
Care Plan Goals
Care Plan Goals:
Problem: Readiness for enhanced knowledge related to diagnosis and treatment plan
Goal: Understand your diagnosis and treatment plan needs, including medications if applicable.
Instructions: Know your diagnosis, underlying causes and treatment plan options, including medications if applicable. Consult with your health care team to learn about your diagnosis and treatment plan, including medications if applicable.
== END 2024-01-22 16:59 | disposition home or self-care (01) | DRG 322 ==
LOC: IVU 10:27
PROVIDERS: Internal Medicine Interventional Cardiology; Physician Assistant Medical; ADMITTING PHYSICIAN Hospitalist; EMERGENCY PHYSICIAN Emergency Medicine; FAMILY PHYSICIAN Family Medicine; OTHER PHYSICIAN Internal Medicine Cardiovascular Disease
PROC: 4A023N7 Measurement of Cardiac Sampling and Pressure, Left Heart, Percutaneous Approach (ICD-10-PCS; 2024-01-21)
PROC: B2111ZZ Fluoroscopy of Multiple Coronary Arteries using Low Osmolar Contrast (ICD-10-PCS; 2024-01-21)
PROC: B2151ZZ Fluoroscopy of Left Heart using Low Osmolar Contrast (ICD-10-PCS; 2024-01-21)
PROC: 027135Z Dilation of Coronary Artery, Two Arteries with Two Drug-eluting Intraluminal Devices, Percutaneous Approach (ICD-10-PCS; 2024-01-21)
DX: I21.4 Non-ST elevation (NSTEMI) myocardial infarction (principal); I25.10 Atherosclerotic heart disease of native coronary artery without angina pectoris; E78.00 Pure hypercholesterolemia, unspecified; E66.9 Obesity, unspecified; I10 Essential (primary) hypertension; I77.810 Thoracic aortic ectasia; G47.33 Obstructive sleep apnea (adult) (pediatric); Z82.49 Family history of ischemic heart disease and other diseases of the circulatory system; Z68.35 Body mass index [BMI] 35.0-35.9, adult; Z79.82 Long term (current) use of aspirin
CPT/HCPCS: 71046; 80048; 80053; 80061; 83036; 84484; 85025; 85027; 85347; 85379; 85610; 85730; 93005; 93306; 93458; 96374; 99291; C1725; C1769; C1874; C1887; C1894; C9600; C9601; Q9967

== ENCOUNTER 2024-03-15 08:30 | Outpatient (RCR) | payer OTHER, SELFPAY | END 2024-03-15 23:59 | disposition home or self-care (01) | LOC: CRHB 08:30 | PROVIDERS: ATTENDING PHYSICIAN Internal Medicine Cardiovascular Disease; FAMILY PHYSICIAN Family Medicine | DX: I25.10 Atherosclerotic heart disease of native coronary artery without angina pectoris (principal); Z95.5 Presence of coronary angioplasty implant and graft; I21.4 Non-ST elevation (NSTEMI) myocardial infarction | CPT/HCPCS: 93797; 93798 ==

== ENCOUNTER 2024-04-05 08:55 | Outpatient (RCR) | payer OTHER, SELFPAY | END 2024-04-05 23:59 | disposition home or self-care (01) | LOC: CRHB 08:55 | PROVIDERS: ATTENDING PHYSICIAN Internal Medicine Cardiovascular Disease; FAMILY PHYSICIAN Family Medicine | DX: I25.10 Atherosclerotic heart disease of native coronary artery without angina pectoris (principal); Z95.5 Presence of coronary angioplasty implant and graft; I21.4 Non-ST elevation (NSTEMI) myocardial infarction | CPT/HCPCS: 93797; 93798 ==

== ENCOUNTER 2024-04-06 18:52 | Emergency (ER) | payer OTHER, SELFPAY ==
[2024-04-06 18:56] VITALS: BP 182/99
--- NOTE | 2024-04-06 19:36 | ED.GENMED ---
History of Present Illness
General
Chief Complaint: Musculo-Skeletal Complaint
Source: patient
Exam Limitations: none
Time Seen by Provider: 04/06/24 19:09
Travel History
Have you had any contact with someone who has COVID-19?: No
Do you have any symptoms of coronavirus? Fever > 100 degrees, chills, cough, shortness of breath, sore throat, loss of taste or smell, muscle aches, or headache?: No
History of Present Illness
History of Present Illness:
See MDM
Past History
Past History
ED Past Medical History: HTN and Hypercholesterolemia
ED Past Surgical History: Appendectomy
Social History
Tobacco: Non-smoker
Alcohol: None
Drug: None
Personal:
Living: with family
Employment: Employed
Family History
Family History: Negative Early CAD or CAD
Phy Exam
Physical Exam
Physical Exam:
See MDM
Course
Orders/Labs/Results
Orders:
Orders
04/06/24 18:59
CR Knee - Left 4 Or More View* Urgent
Comment:
Reason For Exam: injury
04/06/24 19:36
Oxycodone/Acetaminophen [Percocet 5/325] 1 tablet PO NOW STA
Vital Signs
Initial and Last Documented VS:
Initial Vital Signs
Temp Pulse Resp BP Pulse Ox
98.3 F 56 18 182/99 97
04/06/24 18:56 04/06/24 18:56 04/06/24 18:56 04/06/24 18:56 04/06/24 18:56
Last Documented Vital Signs
Temp Pulse Resp BP Pulse Ox
98.3 F 56 18 182/99 97
04/06/24 18:56 04/06/24 18:56 04/06/24 18:56 04/06/24 18:56 04/06/24 18:56
MDM/Problems Addressed
Differential Diagnosis Includes:
HPI and MDM Narrative:
54-year-old male presenting with left knee injury. Patient states he was walking in the mud and his leg gave out and he heard a snap in his knee. He has been having trouble moving his leg and bearing weight. This occurred just prior to arrival.
He tried to walk into the emergency department and states he fell because his leg gave out.
Patient denies head trauma. On exam, there is large knee effusion. I did offer arthrocentesis but discussed the high likelihood of it reoccurring. Given the likelihood of recurrence, patient opted out of arthrocentesis
Physical exam
General: Well appearing and non-toxic
HEENT: protecting airway
Neck: appears supple
CV: No evidence of cyanosis
Resp: No accessory muscle use
Abd: Non-distended
Extremities: Large left knee effusion. Inability to extend left leg. Distal extremity neurovascular intact
Neuro: alert
Psych: Normal affect
Skin: Intact
Problems Addressed including Acute and Chronic Conditions affecting care:
1. Left knee injury
Acuity: acute
Prognosis: unstable
Details: concern for patellar ligament rupture. Patient placed in knee immobilizer and given crutches
2. [ ]
Acuity: acute
Prognosis: stable
Details:
3. [ ]
Acuity: acute
Prognosis: stable
Details:
4. [ ]
Acuity: acute
Prognosis: stable
Details:
5. [ ]
Acuity:
Prognosis:
Details:
Updates
Differential Diagnosis (but not limited to): Knee fracture, knee effusion, patellar ligament rupture, quadriceps tear
Drug therapy (if applicable): OTC meds, please see d/c instruction regarding Rx drugs
Amount and/or Complexity of Data Reviewed
Clinical info obtained from: Patient
External data reviewed: N/A
Labs I independently reviewed (but not limited to): N/A
Radiology: X-ray independently reviewed: Knee x-ray concern for quadriceps tendon tear
Pulse Ox: not hypoxic
EKG independently reviewed: N/A
Missile Inspector: N/A
Critical Care: N/A
Risk of Complication:
Social Determinants of health: Good social support
Discussed with other providers: N/A
Escalation of Care includes Admit/Obs: After being observed in the Emergency Department, pt stable for discharge.
Occasional wrong word or 'sound a like' substitutions may have occurred due to the inherent limitations of voice recognition software. Read the chart carefully and recognize, using context, where substitutions have occurred.
*Critical Care Note
Total Time (30-74mins, 75-104mins- exclusive of procedures): Not Applicable
ED Attending Note
-
Portions of this chart may have been created with voice recognition software.� Occasional wrong word or��sound alike� substitutions may have occurred due to the inherent limitations of voice recognition software.
Discharge Plan
Departure
Patient Disposition: Home (Routine Discharge)
Date of Disposition: 04/06/24
Time of Disposition: 19:51
Patient with high blood pressure during this ER visit?: Yes
Discharge Problem:
Injury of knee, left
Instructions: BLOOD PRESSURE
Prescriptions:
New
oxycodone 5 mg tablet
5 mg PO Q8H PRN (Reason: Pain) Qty: 14 0RF
No Action
acetaminophen [Tylenol] 325 mg Tablet
650 mg PO DAILYPRN PRN (Reason: mild pain)
amlodipine 5 mg Tablet
5 mg PO BID
ascorbic acid (vitamin C) [Vitamin C] 500 mg Tablet
500 mg PO DAILY
losartan 100 mg Tablet
100 mg PO DAILY
coenzyme Q10 [CoQ-10] 100 mg Capsule
100 mg PO DAILY PRN (Reason: supplement)
metoprolol tartrate 25 mg Tablet
25 mg PO BID
Patient Comments:
01/21/2024, per pharmacy, last filled on 10/13/2023 for a 30-day supply.
rosuvastatin [Crestor] 20 mg tablet
20 mg PO DAILY Qty: 30 2RF
Brilinta 90 mg tablet
90 mg PO BID Qty: 60 2RF
aspirin 81 mg capsule
81 mg PO DAILY Qty: 30 0RF
Referrals:
Omero Calle MD [Active] -
Rubia Jessica MD [Family Provider] -
Activity Restrictions/Additional Instructions:
As we discussed, I am concerned that you tore the ligament that attaches your thigh muscle to your kneecap. Please keep the knee immobilizer on for comfort and please call the orthopedist first thing tomorrow morning.
You were given a prescription for narcotics. If you require this pain medicine, please take a daily [id number] stool softener to avoid constipation.
Interventions
Interventions:
*Risk Screen - Suicide Last Done: 04/06/24 18:56
*General Assessment Last Done: 04/06/24 18:56
*Neglect/Abuse Screening Last Done: 04/06/24 18:56
Discharge Date and Time
Print Language: DUTCH
[2024-04-06] MEDS: PERCOCET 5/325 1 TABLET PO ×2 (19:59→20:43)
[2024-04-06 20:10] VITALS: BP 110/70
== END 2024-04-06 21:19 | disposition home or self-care (01) ==
LOC: EMR 18:52
PROVIDERS: EMERGENCY PHYSICIAN Student in an Organized Health Care Education/Training Program; FAMILY PHYSICIAN Family Medicine
DX: S89.92XA Unspecified injury of left lower leg, initial encounter (principal); X50.1XXA Overexertion from prolonged static or awkward postures, initial encounter; I10 Essential (primary) hypertension
CPT/HCPCS: 99283; 73564

== ENCOUNTER → 2024-04-29 05:46 | Day surgery (SDC) | payer OTHER, SELFPAY ==
[2024-04-29 07:54] VITALS: BP 146/83
[2024-04-29] MEDS: NORMOSOL-R 1000 IV (08:00)
[2024-04-29] MEDS: CELEBREX 200 MG PO (08:01)
[2024-04-29 08:07] VITALS: BMI 32.3
[2024-04-29] MEDS: ASPIRIN ENTERIC COATED 325 MG PO (08:37)
== END ==
LOC: SDS 05:46
PROVIDERS: ATTENDING PHYSICIAN Specialist
DX: S76.112A Strain of left quadriceps muscle, fascia and tendon, initial encounter (principal); X58.XXXA Exposure to other specified factors, initial encounter; Z53.8 Procedure and treatment not carried out for other reasons
CPT/HCPCS: 27664

== ENCOUNTER 2024-05-04 06:37 | Day surgery (SDC) | payer OTHER, SELFPAY ==
[2024-05-04] VITALS (10 sets, daily range): BP systolic 128–165; BP diastolic 79–98; BMI 32.1
[2024-05-04] MEDS: NORMOSOL-R 1000 IV (13:24)
[2024-05-04] MEDS: CELEBREX 200 MG PO (13:25)
[2024-05-04] MEDS: TYLENOL 500 MG PO (13:25)
[2024-05-04] MEDS: DILAUDID 0.25 MG IV ×3 (15:59→16:42)
[2024-05-04] MEDS: DILAUDID 0.5 MG IV (16:26)
[2024-05-04] MEDS: ROXICODONE 5 MG PO (17:22)
== END 2024-05-04 18:15 | disposition home or self-care (01) ==
LOC: SDS 06:37
PROVIDERS: ATTENDING PHYSICIAN Orthopaedic Surgery Hand Surgery
DX: S76.112A Strain of left quadriceps muscle, fascia and tendon, initial encounter (principal); X58.XXXA Exposure to other specified factors, initial encounter
CPT/HCPCS: 27385; C1713

== ENCOUNTER → 2024-12-01 10:40 | Outpatient (REF) | payer OTHER, SELFPAY | LOC: PAVMRI 10:40 | PROVIDERS: ATTENDING PHYSICIAN Physician Assistant Surgical; FAMILY PHYSICIAN Family Medicine | DX: M25.562 Pain in left knee (principal) | CPT/HCPCS: 73560; 73565; 73721 ==

== ENCOUNTER → 2025-03-07 10:42 | Outpatient (REF) | payer OTHER, SELFPAY | LOC: PET 10:42 | PROVIDERS: ATTENDING PHYSICIAN Internal Medicine Cardiovascular Disease | DX: R07.89 Other chest pain (principal) | CPT/HCPCS: 78431; A9555; J2785 ==

== ENCOUNTER → 2025-09-06 13:15 | Outpatient (REF) | payer OTHER, SELFPAY | LOC: HWRCS 13:15 | PROVIDERS: ATTENDING PHYSICIAN Internal Medicine Cardiovascular Disease; FAMILY PHYSICIAN Family Medicine | DX: I10 Essential (primary) hypertension (principal) | CPT/HCPCS: 93306 ==